=== PATIENT | male | born 1990 | race Caucasian/White ===

== ENCOUNTER 2018-03-27 12:18 | Emergency (ER) | payer SELFPAY, BC | END 2018-03-27 13:02 | disposition home or self-care (01) | LOC: M ED 12:18 | DX: L01.00 Impetigo, unspecified (principal); I10 Essential (primary) hypertension; J45.909 Unspecified asthma, uncomplicated; K21.9 Gastro-esophageal reflux disease without esophagitis; G43.909 Migraine, unspecified, not intractable, without status migrainosus; Z88.2 Allergy status to sulfonamides; Z88.0 Allergy status to penicillin; Z88.1 Allergy status to other antibiotic agents; Z79.899 Other long term (current) drug therapy; Z79.2 Long term (current) use of antibiotics | CPT/HCPCS: 99282 ==

== ENCOUNTER 2025-06-03 22:40 | Observation (INO) | payer OTHER, SELFPAY ==
[~2025-06-03] VITALS: Ht 182.9 cm; Wt 155.0 kg
[~2025-06-03 22:40] MED LIST: CLIN150C17; CLIN300C OR; DOXY-441 PO; DOXY100T OR; LISI20TA37; NEOSPORIN TOP; TYLE500T53 OR
[2025-06-03 23:15] LABS: VENOUS BASE EXCESS 2.7 (-2.0-2.0); VENOUS HCO3 27.6 MMOL/L (23.0-27.0); VENOUS O2 SATURATION 91.5 % (60.0-80.0); VENOUS PARTIAL PRESSURE CO2 43.3 mmHg (38.0-50.0); VENOUS PARTIAL PRESSURE O2 60.0 mmHg (30.0-50.0); VENOUS PH 7.423 UNITS (7.330-7.430); VENOUS STANDARD HCO3 26.7 MMOL/L; VENOUS TOTAL CO2 29.0 MMOL/L (24.0-28.0)
[2025-06-03 23:50] LABS: ALT/SGPT 56.0 U/L (7.0-40); AST/SGOT 121.0 U/L (<34); CALCIUM LEVEL 8.7 MG/DL (8.5-10.1); CARBON DIOXIDE LEVEL 27.0 MMOL/L (20-31); CHLORIDE LEVEL 101.0 MMOL/L (98-107); CK-MB VALUE MASS 9.5 NG/ML (<3.6); CREATININE FOR GFR 1.64 MG/DL (0.70-1.30); GLOMERULAR FILTRATION RATE 56.3 (>60); POTASSIUM SERUM 4.3 MMOL/L (3.5-5.1); SODIUM LEVEL 138.0 MMOL/L (136-145)
[2025-06-04 00:07] LABS: MB/CK RELATIVE INDEX 0.33 (< OR =4)
[2025-06-04] MEDS ORDERED: ISOVUE-370 76% 100 ML VIAL As Ordered ONE (00:26)
[2025-06-04] MEDS: IPRATROPIUM 0.5 MG/ALBUTEROL 2.5 MG INH SOL UD 3 ML NEB ONE (00:38)
[2025-06-04 00:45] LABS: BASO # 0.0 10^3/uL (0.0-0.2); BASO % 0.5 % (0.0-1.0); EOS # 0.2 10^3/uL (0.0-0.5); EOS % 2.5 % (0.0-3.0); LYMPH # 1.9 10^3/uL (1.5-5.0); LYMPH % 22.8 % (24.0-44.0); MONO # 0.8 10^3/uL (0.0-0.8); MONO % 9.7 % (2.0-8.0); NEUTROPHILS # 5.5 10^3/uL (1.5-8.5); NEUTROPHILS % 64.3 % (36.0-66.0); PLATELET COUNT, AUTOMATED 247 10^3/uL (150-450)
[2025-06-04] MEDS ORDERED: ACET-1387 PO (00:52)
[2025-06-04] MEDS ORDERED: METO25TA PO (01:36)
[2025-06-04] MEDS ORDERED: HYDR50TA46 PO (01:36)
[2025-06-04] MEDS ORDERED: SPIR50TA4 PO (01:36)
[2025-06-04 04:22] LABS: CK-MB VALUE MASS 8.9 NG/ML (<3.6)
[2025-06-04 04:39] LABS: CPK CREATINE PHOSPHOKINASE 2210.0 U/L (46-171); MB/CK RELATIVE INDEX 0.4 (< OR =4)
[2025-06-04] MEDS ORDERED: VERI10TA PO (05:10)
[2025-06-04] MEDS ORDERED: ENTR1TAB4 PO (05:10)
[2025-06-04] MEDS ORDERED: TORS100T PO (05:10)
[2025-06-04] MEDS ORDERED: HOME MED LIST COMPLETE! XX SCH (05:10)
[2025-06-04] MEDS ORDERED: OMEP40CA4 PO (05:10)
[2025-06-04] MEDS ORDERED: CARV25TA PO (05:10)
[2025-06-04] MEDS ORDERED: ALLO100T PO (05:10)
[2025-06-04] MEDS ORDERED: POTA-141 PO (05:10)
[2025-06-04] MEDS ORDERED: NITR0.4S14 PO (05:10)
[2025-06-04] MEDS: IPRATROPIUM 0.5 MG/ALBUTEROL 2.5 MG INH SOL UD 3 ML NEB SCH ×2 (05:16→07:24)
[2025-06-04] MEDS ORDERED: ACETAMINOPHEN 325 MG TAB PO PRN (05:20)
[2025-06-04] MEDS ORDERED: ONDANSETRON 4MG/2ML VIAL IV PRN (05:20)
[2025-06-04] MEDS ORDERED: MOM 30 ML SUSPENSION UDC PO PRN (05:20)
[2025-06-04 06:17] VITALS: BP 180/108; TEMP 98.3; O2SAT 96
[2025-06-04] MEDS: NS (Normal Saline) 0.9% 1,000 ML IV SCH (06:37)
[2025-06-04] MEDS: DOXYCYCLINE HYCLATE 100 MG in DEXTROSE 5% (D5W) MINI-BAG PLU 100 ML IV SCH (06:38)
[2025-06-04] MEDS: UNRESOLVED CLARIFICATION ENTRY XX STA (06:39)
[2025-06-04] MEDS: **hydrALAZINE** 50 MG TAB PO SCH (06:57)
[2025-06-04 08:00] VITALS: BP 142/81; TEMP 97.8; O2SAT 96
[2025-06-04] MEDS: PANTOPRAZOLE 40MG TAB PO SCH (08:20)
[2025-06-04] MEDS: ENOXAPARIN 40 MG/0.4 ML SYRINGE (J1650 PER 10MG) SC SCH (08:21)
[2025-06-04] MEDS: ENTRESTO PO SCH (09:18)
[2025-06-04] MEDS: BENZONATATE 100 MG CAPSULE PO PRN (09:18)
[2025-06-04 09:29] LABS: CALCIUM LEVEL 8.8 MG/DL (8.5-10.1); CARBON DIOXIDE LEVEL 27.0 MMOL/L (20-31); CHLORIDE LEVEL 99.0 MMOL/L (98-107); CREATININE FOR GFR 1.37 MG/DL (0.70-1.30); GLOMERULAR FILTRATION RATE 69.9 (>60); POTASSIUM SERUM 4.4 MMOL/L (3.5-5.1); SODIUM LEVEL 137.0 MMOL/L (136-145)
[2025-06-04 12:00] VITALS: BP 156/105; TEMP 97.9; O2SAT 95
[2025-06-04] MEDS: SYMBICORT 160/4.5MCG INHALER 6GM INH SCH (13:09)
[2025-06-04] MEDS ORDERED: VENTAER INH (13:44)
[2025-06-04] MEDS ORDERED: BENZ-18 PO (13:44)
[2025-06-04] MEDS ORDERED: DOXY100T PO (13:44)
[2025-06-04] MEDS ORDERED: PRED20TA PO (13:44)
[2025-06-04] MEDS ORDERED: DOXYCYCLINE HYCLATE 100 MG TABLET PO SCH (21:00)
[2025-06-05] MEDS ORDERED: UNRESOLVED CLARIFICATION ENTRY XX SCH (00:01)
== END 2025-06-04 15:08 | disposition home or self-care (01) ==
LOC: M ED 22:40 → M ED INP 06-04 05:27 → M MS4PR 06-04 06:13
PROVIDERS: ADMIT Internal Medicine; ATTEND Internal Medicine
DX: J96.01 Acute respiratory failure with hypoxia (principal); B97.81 Human metapneumovirus as the cause of diseases classified elsewhere; I50.32 Chronic diastolic (congestive) heart failure; I11.0 Hypertensive heart disease with heart failure; E66.01 Morbid (severe) obesity due to excess calories; Z68.42 Body mass index [BMI] 45.0-49.9, adult; N17.9 Acute kidney failure, unspecified; R74.01 Elevation of levels of liver transaminase levels; M62.82 Rhabdomyolysis; Z79.899 Other long term (current) drug therapy; Z88.0 Allergy status to penicillin; Z88.1 Allergy status to other antibiotic agents; Z88.2 Allergy status to sulfonamides; Z88.8 Allergy status to other drugs, medicaments and biological substances; J45.909 Unspecified asthma, uncomplicated
CPT/HCPCS: 36415; 71045; 71275; 80048; 80076; 82375; 82550; 82553; 82803; 83880; 84484; 85025; 87486; 87581; 87633; 87798; 93041; 93306; 94640; 94760; 96365; 96366; 96372; 96375; 96376; 99285; J1271; J1650; J2919; Q9967